=== PATIENT | female | born 1950 | race Hispanic/Latino ===

== ENCOUNTER → 2017-11-29 | Outpatient (CLI) | payer MEDICARE ==
--- NOTE | 2017-11-29 12:07 | Diagnostic Imaging Report ---
EXAM: Bone mineral density study 11/29/2017 10:46 AM INDICATION: \S\POST MENOPAUSAL COMPARISON: None FINDINGS: Evaluation of the left hip and lumbar spine was performed. The study is technically adequate. The patient's fracture risk is compared to an age-matched control. The patient denies prior surgery/fracture of the spine, hips or forearm. Left femoral neck bone mineral density: 0.68 g/cm2, T-score is -1.6, Z-score is -0.2. Left hip total bone mineral density: 0.691 g/cm2, T-score is -2.0, Z-score is -0.9. Lumbar spine total bone mineral density: 0.73 gm/cm2, T-score is -2.9, Z-score is -1.1. IMPRESSION: Bone mineralization by WHO Classification is osteopenia for left hip, the fracture risk is increased. Bone mineralization by WHO Classification is osteoporosis for lumbar spine, the fracture risk is high. Signed by: Dr. Alphonso Domingo MD on 11/29/2017 12:04 PM
== END ==
LOC: MAMMO 10:39
PROVIDERS: ATTEND Family Medicine
DX: Z12.31 Encounter for screening mammogram for malignant neoplasm of breast (principal); N95.9 Unspecified menopausal and perimenopausal disorder
CPT/HCPCS: 77067; 77080

== ENCOUNTER 2020-06-07 12:09 | Emergency (ER) | payer MEDICARE ==
[~2020-06-07] VITALS: Ht 152.4 cm; Wt 73.5 kg
[2020-06-07 12:48] LABS: BASOPHILS # (AUTO) 0.1 (0.0-0.1); BASOPHILS % 0.8 % (0.0-1.0); EOSINOPHILS # (AUTO) 0.2 (0.0-0.4); EOSINOPHILS % 3.1 % (0.0-6.0); HEMOGLOBIN 13.8 g/dL (12.0-16.0); MEAN CORPUSCULAR HEMOGLOBIN 29.5 pg (28-32); MEAN CORPUSCULAR HGB CONC 32.9 g/dL (31-35); MEAN CORPUSCULAR VOLUME 89.7 fL (81-99); MONOCYTES # (AUTO) 0.4 (0.2-0.8); MONOCYTES % 6.1 % (4.4-11.3); NEUTROPHILS # (AUTO) 3.9 (2.1-6.9); NEUTROPHILS % 58.7 % (38.7-80.0); PLATELET COUNT 190 x10e3/uL (140-360); RED BLOOD COUNT 4.68 x10e6/uL (3.6-5.1); RED CELL DISTRIBUTION WIDTH 11.4 % (11.7-14.4)
[2020-06-07 13:08] LABS: ALBUMIN 3.6 g/dL (3.5-5.0); ALBUMIN/GLOBULIN RATIO 0.9 (0.8-2.0); ANION GAP 11.9 mmol/L (8-16); CREATININE, SERUM 1.04 mg/dL (0.57-1.11); POTASSIUM 3.9 mmol/L (3.5-5.1)
[2020-06-07 13:15] LABS: CREATINE KINASE MB 0.6 ng/mL (0-5.0)
[2020-06-07] MEDS ORDERED: DIPHENHYDRAMINE HCL INJ 50 MG/ML VIAL IV ONE (13:30)
[2020-06-07] MEDS ORDERED: MAGNESIUM SULFATE 2GM/50ML 50 ML IV ONE (13:30)
[2020-06-07] MEDS ORDERED: ACETAMIN/BUTALBITAL/CAFFEINE TAB PO ONE (13:30)
[2020-06-07] MEDS ORDERED: METOCLOPRAMIDE HCL 10 MG/2ML VIAL IV ONE (13:30)
[2020-06-07] MEDS ORDERED: SODIUM CHLORIDE 0.9% 100 ML ONE (14:11)
[2020-06-07] MEDS ORDERED: IOPAMIDOL 370 MG/ML 200 ML INFUS..BTL INJ ONE (14:11)
[2020-06-07] MEDS ORDERED: SODIUM CHLORIDE 0.9% 1000ML 1,000 ML IV SCH ×3 (14:15→15:15)
[2020-06-07] MEDS ORDERED: HYDRALAZINE HCL 20 MG/ML VIAL IV ONE (18:30)
[2020-06-07] MEDS ORDERED: HYDRALAZINE HCL 20 MG/ML VIAL ONE (18:33)
[2020-06-07 22:21] VITALS: BP 195/98
== END 2020-06-07 21:45 | disposition other institution (70) ==
LOC: ER 12:40
DX: R51.9 Headache, unspecified (principal); I10 Essential (primary) hypertension
CPT/HCPCS: 36415; 70496; 70498; 80053; 82550; 82553; 84484; 85025; 99284; J0360; J1200; J2765; J3475; J7050; Q9967